=== PATIENT | male | born 1960 | race Caucasian/White ===

== ENCOUNTER 2023-09-26 02:15 | Day surgery (SDC) | payer OTHER, SELFPAY ==
[2023-09-08 14:18] VITALS: BMI 27.4
--- NOTE | 2023-09-23 08:55 | SUR.PREOP ---
Patient called regarding upcoming procedure. Reviewed preop instructions, appointment times, and procedure prep.
--- NOTE | 2023-09-23 14:38 | PM.HPGS ---
History of Present Illness History of Present Illness Consent: Risks, benefits, and alternatives have been discussed and questions answered. Patient agrees to proceed with procedure. Chief complaint: SCREENING NEOPLASM OF THE COLON Narrative: Mansoor Jose is a 62 year old male Referred for colon cancer screening. His last colonoscopy was 5 years ago. He has a family history of colon cancer. Review of Systems Review of Systems: All systems reviewed & are unremarkable except as noted in HPI and below PMFSH Family History Family History Mother Hypertension Father Family history of coronary artery disease Social History Social History Smoking status: Never smoker Alcohol intake: never Substance use: never Substance use type: does not use Living arrangements: with family Spiritual care concerns: No Meds Home Medications and Allergies Home Medications Medication Instructions Recorded Confirmed Type losartan 50 mg tablet 50 mg PO DAILY 09/08/23 09/26/23 History Allergies Allergy/AdvReac Type Severity Reaction Status Date / Time No Known Allergies Allergy Verified 09/26/23 07:53 Exam Const: General: alert Orientation/consciousness: patient oriented x3 Resp: Auscultation: clear to auscultation bilaterally Cardio: Rhythm: regular rhythm GI: GI Palp: Yes Soft to palpation and No Tenderness to palpation present (GI) Neuro: General: patient oriented x3 Assessment and Plan Assessment and plan (1) Colon cancer screening: Code(s): Z12.11 - Encounter for screening for malignant neoplasm of colon Status: Acute Assessment and Plan: Colonoscopy with possible biopsy or polypectomy or cautery or injection of substances.
[2023-09-26 07:48] VITALS: BP 130/77; PULSE 83; RESP 18; TEMP 36.1; O2SAT 100; BMI 28.1
[2023-09-26] MEDS: LACTATED RINGERS 1,000 ML 150 ML IV CONT (08:06)
--- NOTE | 2023-09-26 08:23 | P.PNAN_ITS ---
Anes - Initial Pre Proc Eval Procedure: Operation Date: 09/26/23 09:00 Proposed Procedures p Screening Colonoscopy - Sarbjit Marcelino MD Date/Time: 09/26/23 08:23 Surgeon: Sarbjit Marcelino MD Pre Op Diagnosis: SCREENING NEOPLASM OF THE COLON Patient Data Age: 62 Gender: M Height: 1.73 m Weight: 83.9 kg Last Vital Signs Temp 97.0 F L 09/26/23 07:48 Pulse 83 09/26/23 07:48 Resp 18 09/26/23 07:48 BP 130/77 09/26/23 07:48 Pulse Ox 100 09/26/23 07:48 O2 Del Method Room Air 09/26/23 07:48 Allergies Allergy/AdvReac Type Severity Reaction Status Date / Time No Known Allergies Allergy Verified 09/26/23 07:53 Home Medications Medication Instructions Recorded Confirmed Type losartan 50 mg tablet 50 mg PO DAILY 09/08/23 09/26/23 History Patient hx anesthesia problems: none Family hx anesthesia problems: none Results Review: All pre-operative results and documents have been reviewed as part of the pre-op erative evaluation. [facility] Family History Family History (System 10/09/19 @ 15:20 by Kesha Verma) Mother Hypertension Father Family history of coronary artery disease Social History Social History (System 10/09/19 @ 15:20 by Kesha Verma) Smoking status: Never smoker Alcohol intake: never Substance use: never Substance use type: does not use Living arrangements: with family Spiritual care concerns: No Anes - Eval Final PreProcedure Day of Procedure 09/26/23 08:23 Patient weight: normal Heart: regular rate and rhythm Lungs: clear to auscultation Airway: Mallampati scale class II Neurological: alert and oriented Last oral intake: >/= 8 hours ASA classification: II Emergent: no Anesthetic plan: proceed Anesthesia type and monitoring: general GIVS and standard monitoring Results Review: All pre-operative results and documents have been reviewed as part of the pre- operative evaluation. Informed Consent: The patient's anesthetic plan and its attendant risks and benefits were discussed with the patient/family/POA. Questions were solicited and answers provided to the satisfaction of the patient/family/POA.
[2023-09-26 09:12] VITALS: BP 91/65; PULSE 73; RESP 16; O2SAT 99
[2023-09-26 09:22] VITALS: BP 136/78; PULSE 83; RESP 26; O2SAT 98
[2023-09-26 09:32] VITALS: BP 130/81; PULSE 64; RESP 14; O2SAT 99
== END 2023-09-26 09:53 | disposition home or self-care (01) ==
PROVIDERS: Visit Provider Internal Medicine Gastroenterology
PROC: 0DJD8ZZ Inspection of Lower Intestinal Tract, Via Natural or Artificial Opening Endoscopic (ICD-10-PCS; CPT 45378; principal; 2023-09-26 09:00)
DX: Z12.11 Encounter for screening for malignant neoplasm of colon (principal); K57.30 Diverticulosis of large intestine without perforation or abscess without bleeding
CPT/HCPCS: 45378; J2704; J7120